=== PATIENT | female | born 1985 | race Caucasian/White ===

== ENCOUNTER 2021-01-29 05:20 | Day surgery (SDC) | payer MEDICAID ==
[~2021-01-29] VITALS: Ht 152.4 cm; Wt 98.9 kg
[~2021-01-29 05:20] MED LIST: AMOXICILLIN500 M1 PO; ARMOUR THYROID30 MG PO; BUSPAR 15 MG TA15 MG PO; CLARITIN 10 MG10 MG PO; EFFEXOR XR150 MG PO; MOBIC7.5 MG PO; NEURONTIN600 MG PO; TYLENOL W/CODEI1 TAB PO; VITAMIN D21250 MC1 PO
[2021-01-29 06:07] LABS: HEMATOCRIT 34.3 % (36.0-48.0); HEMOGLOBIN 10.5 g/dL (12-16); MCH 24.6 pg (26.0-34.0); MCHC 30.6 g/dL (31.0-37.0); MCV 80.2 fL (80.0-100.0); MEAN PLATELET VOLUME 8.9 fL (7.4-10.4); RBC 4.27 10x6/uL (4.00-5.40); RDW 17.2 % (11.5-14.5); WBC 6.9 10x3/uL (4.8-10.8)
[2021-01-29 06:19] VITALS: BP 129/72; Ht 152.4 cm; Wt 98.9 kg
[2021-01-29 06:26] LABS: HCG SERUM NEGATIVE (NEGATIVE)
--- NOTE | 2021-01-29 09:27 | NUR ---
PT STATES PAIN IS A "9". STATED "0" 5 MINUTES PRIOR
--- NOTE | 2021-01-29 14:09 | NUR ---
100 MEDICATED FOR PAIN. PT ON 2 LITERS NC AND APPEARS SLEEPY. VS STABLE WITH HR ABOVE 100. PT IS A CRONIC PAIN PT. MEDICATED FOR MILD NAUSEA.
--- NOTE | 2021-01-29 14:10 | NUR ---
1255 IV REMOVED AND INSTUCTIONS GIVEN ABOUT SURGERY AND CARE OF STILES CATHETER. NOT TO REMOVE STILES UNTIL OFFICE CALLS.10CC SYRINGE WITH INSTRUCTIONS GIVEN. STATED THEY HAVE A RN IN THE FAMILY AND SHE WOULD TAKE IT OUT AFTER OFFICE SAYS IT IS OK OR TO RETURN TO OFFICE IF THAT IS WHAT THE OFFICE WANTS
== END 2021-01-29 13:05 | disposition home or self-care (01) ==
LOC: D.OPS 05:20
PROVIDERS: Anesthesiology; ATTEND Obstetrics & Gynecology Maternal & Fetal Medicine
DX: N92.1 Excessive and frequent menstruation with irregular cycle (principal); N80.0 Endometriosis of uterus; R10.2 Pelvic and perineal pain; N94.6 Dysmenorrhea, unspecified; N93.9 Abnormal uterine and vaginal bleeding, unspecified; N92.6 Irregular menstruation, unspecified; N94.10 Unspecified dyspareunia